=== PATIENT | male | born 1940 | race Caucasian/White ===

== ENCOUNTER 2020-06-04 17:04 | Inpatient (IN) | payer MEDICARE, SELFPAY ==
--- NOTE | 2020-06-04 | XR_ITS ---
EXAMINATION: XR CHEST CLINICAL INFORMATION: Cough COMPARISON: Report only from 08/18/2008 study TECHNIQUE: 2 views of the chest were obtained. FINDINGS: The heart size is normal. There is no evidence of CHF. No pleural effusions are seen. Some minimal atelectasis is present in the right costophrenic angle as well as in the right midlung. No convincing areas of infiltrate or lung masses are seen. IMPRESSION: No acute intrathoracic disease.
--- NOTE | 2020-06-04 | CT_ITS ---
EXAMINATION: CT ABDOMEN AND PELVIS WITHOUT CONTRAST CLINICAL INFORMATION: Right-sided flank pain COMPARISON: Renal ultrasound 02/15/2020, CT abdomen 02/18/2007 TECHNIQUE: Multidetector volumetric imaging was performed from the superior aspect of the liver through the pubic symphysis. Sagittal and coronal reformatted images were obtained on the technologist's workstation. This CT examination was performed using dose optimization techniques as appropriate, variously including the following: *Automated exposure control *Adjustment of mA and/or kV according to patient size (this includes techniques or standardized protocols for targeted exams where dose is matched to indication/reason for exam; i.e. extremities or head) *Use of iterative reconstruction technique DLP: 886 mGy-cm FINDINGS: LUNG BASES: The visualized lung bases are unremarkable. LIVER, GALLBLADDER, AND BILIARY TREE: The liver demonstrates slightly decreased attenuation compared to the spleen suggesting hepatic steatosis. No focal liver mass or bile duct dilatation is seen. The gallbladder contains a few calcific stones but there is no evidence of wall thickening or pericholecystic fluid collections. PANCREAS: Unremarkable. SPLEEN: Unremarkable. ADRENAL GLANDS: Unremarkable. KIDNEYS AND URETERS: Right kidney: There is an obstructing 7.6 x 7.7 x 5.3 mm calculus present at the right ureteropelvic junction this measures 1400 Hounsfield units and is 14.7 cm from the posterior axillary line. Moderate hydronephrosis is present. Multiple other intrarenal calculi are present on the right with 4 other calculi seen, the largest in the right lower pole measuring 3 mm. No renal masses are seen. Left kidney: Left kidney appears unremarkable. BLADDER: Submucosal fat is present in the bladder wall. GASTROINTESTINAL TRACT: Extensive colonic diverticulosis is noted without diverticulitis. Patient status post right hemicolectomy. The small and large bowel are otherwise unremarkable. ABDOMINAL WALL: No significant hernia is appreciated. LYMPH NODES: Normal. VASCULAR: No aneurysm is seen. Minimal atherosclerotic calcifications present in the aorta and iliac vessels. The left renal vein is retroaortic. PELVIC VISCERA: Prostate is enlarged measuring 5.0 x 4.2 x 4.5 cm. Seminal vesicles appear normal. OSSEOUS STRUCTURES: Degenerative changes are present in the spine. IMPRESSION: 1. Obstructing right ureteropelvic junction calculus 2. Other smaller nonobstructing right sided calculi 3. Hepatic steatosis 4. Cholelithiasis 5. Diverticulosis 6. BPH
[2020-06-04 17:11] VITALS: BP 148/67; PULSE 71; RESP 18; TEMP 36.4; O2SAT 98; BMI 71.6
[2020-06-04 18:00] VITALS: BP 137/67; PULSE 65; RESP 16; TEMP 36.6; O2SAT 97
--- NOTE | 2020-06-04 18:01 | ED_ITS ---
HPI - Abdominal Pain General Chief Complaint: Back Pain/Injury Stated Complaint: LOWER BACK PAIN Time Seen by Provider: 06/04/20 17:42 Source: patient Mode of arrival: ambulatory History of Present Illness HPI narrative: right flank pain radiating to abdomen. Pertinent past history: none Onset (ago): day(s) ( To) Pain Consistency: constant Severity: moderate Quality: sharp Radiation: RUQ Related Data Home Medications Medication Instructions Recorded Confirmed allopurinol 1 tab PO DAILY 06/04/20 06/04/20 amlodipine 1 tab PO DAILY 06/04/20 06/04/20 tamsulosin 0.8 mg PO DAILY 06/04/20 06/04/20 Allergies Allergy/AdvReac Type Severity Reaction Status Date / Time No Known Allergies Allergy Verified 06/04/20 17:21 Review of Systems Review of Systems Constitutional : No Weight loss, No Fever, No Chills, No Night Sweats, No Fatigue, No Malaise ENT/Mouth : No Hearing loss, No Ear Pain, No Nasal Congestion, No Sinus Pain, No Hoarseness, No sore throat, No Rhinorrhea, No Swallowing Difficulty Eyes: No Eye Pain, No Swelling, No Redness, No Foreign Body, No Discharge, No Vision Changes Cardiovascular : No Chest Pain, No SOB, No Dyspnea on Exertion, No Orthopnea, No Edema, No Palpitations Respiratory : No Cough, No Sputum, No Wheezing, No Smoke Exposure, No Dyspnea Gastrointestinal : negative Nausea, negative Vomiting, negative Diarrhea, positive abdominal Pain, No Hematochezia, No Melena, positive right flank pain Genitourinary : no irregular bleeding, No Dysuria, No Urinary Frequency, No Hematuria, No Urinary Incontinence, No Urgency, No Flank Pain, No Urinary Flow Changes, No Hesitancy Musculoskeletal : No joint pain, No Myalgias, No Joint Swelling Skin : No Skin Lesions, No rash Neuro : No Weakness, No Numbness, No Paresthesias, No Loss of Consciousness, No Dizziness, No Headache Psych : No Anxiety/Panic, No Depression, No SI/HI/AH/VH, No Social Issues, Heme/Lymph: No Bruising, No Bleeding,No Lymphadenopathy Endocrine : No Polyuria, No Polydipsia, No Temperature Intolerance Physical Exam Vital Signs and I&O and Narrative: Vital Signs and I&O: Vital Signs Temp 98.1 F 10/03/20 23:58 Pulse 58 06/04/20 23:58 Resp 16 06/04/20 23:58 BP 132/54 L 06/04/20 23:58 Pulse Ox 95 06/04/20 23:58 Intake & Output 06/04/20 06/04/20 06/05/20 06:59 18:59 06:59 Intake Total 1000 / 1059.95 Balance 1000 / 1059.95 Weight 260 kg Intake: Intake, IV Amoun t 1000 / 1059.95 0.9 % Sodium C hloride 1,000 ml 1000 / 1000 @ 999 mls/hr I VCONT .Q1H1M VY Rx#:[id number] Body Mass Index 71.6 Appearance: Alert. Oriented X3. No acute distress. Eyes: Pupils equal, round and reactive to light. ENT: Pharynx normal. Neck: Normal inspection. Neck supple. CVS: Normal heart rate and rhythm. Pulses normal. Respiratory: No respiratory distress. Breath sounds normal. Abdomen: Soft and right lower quadrant tenderness. No rebound. No rigidity. Back: right flank tenderness. No ecchymosis, no abscess. No laceration Skin: Skin warm and dry. Normal skin color. Normal skin turgor. Extremities: No lower extremity edema. No lower extremity edema. Neuro: Oriented X 3. No motor deficit. No sensory deficit. Course Reevaluation(s) Reevaluation #1: I spoke with patient in regards to laboratory work and CT scan, admission and IV antibiotics Time: 19:37 Consultations Consultation #1: I spoke with hospitalist Dr. Cali Victor for admission and I spoke with Urology Dr. Cespedes. Recommends IV antibiotics admission will see in the morning Time: 19:37 MDM - Abdominal Pain Differential Diagnosis Differential diagnosis: Likely abdominal pain and diverticulitis Medical Records Attestation: I reviewed the patient's medical records. Medical records narrative: KIDNEYS AND URETERS: Right kidney: There is an obstructing 7.6 x 7.7 x 5.3 mm calculus present at the right ureteropelvic junction this measures 1400 Hounsfield units and is 14.7 cm from the posterior axillary line. Moderate hydronephrosis is present. Multiple other intrarenal calculi are present on the right with 4 other calculi seen, the largest in the right lower pole measuring 3 mm. No renal masses are seen. Lab Data Result diagrams: 06/04/20 18:02 06/04/20 18:02 Labs: Lab Results 06/04/20 06/04/20 06/04/20 Range/Units 17:45 18:01 18:02 WBC (4.8-10.8) X10*3/uL RBC (4.60-5.80) X10*6/uL Hgb (14.0-18.0) g/dl Hct (42-52) % MCV (80-98) fL MCH (27.0-33.0) pg MCHC (31.0-36.0) g/dl RDW (11.0-16.0) % Plt Count (160-400) X10*3/uL MPV (9.4-12.4) fL Immature Gran % (Auto) Neut % (Auto) Lymph % (Auto) [place] % (Auto) Eos % (Auto) Baso % (Auto) Neut # (Auto) Lymph # (Auto) [place] # (Auto) Eos # (Auto) Baso # (Auto) Abs Immat Gran (auto) Absolute Nucleated RBC (0.0-0.012) X10*3/uL Nucleated RBC % (auto) (0.0-0.2) /100WBC Neutrophils % (Manual) (45-73) % Band Neutrophils % (3-5) % Lymphocytes % (Manual) (20-40) % Monocytes % (Manual) (2-11) % Neutrophils # (Manual) (2.2-7.9) X10*3/uL Lymphocytes # (Manual) (0.6-4.8) X10*3/uL Monocytes # (Manual) (0.0-1.2) X10*3/uL Sm[place] Cells Platelet Estimate (NORMAL) Plt Morphology Comment RBC Morphology Macrocytosis Sodium 142 (135-145) mmol/L Potassium 4.0 (3.3-5.1) mmol/l Chloride 105 (96-108) mmol/L Carbon Dioxide 27 (22-29) mmol/L Anion Gap 14 (12-20) BUN 15 (9-16) mg/dL Creatinine 0.96 (0.5-1.4) mg/dL Estim Creat Clear Calc 138.7 Estimated GFR > 60 Random Glucose 120 H (60-115) mg/dL Lactic Acid (0.5-2.0) mmol/L Calcium 9.1 (8.4-10.2) mg/dL Total Bilirubin 0.5 (0.0-1.0) mg/dL Direct Bilirubin 0.3 (0.0-0.5) mg/dL AST 26 (5-37) U/L ALT 35 (0-40) U/L Alkaline Phosphatase 64 (39-117) U/L Total Protein 6.9 (6.5-8.0) g/dL Albumin 4.3 (3.5-5.0) g/dL Lipase 25 (8-78) U/L Urine Color YELLOW Urine Appearance CLEAR Urine pH 5.5 (5.0-8.0) Ur Specific [place] >= 1.030 H (1.005-1.025) Urine Protein NEG (NEG-TRACE) MG/DL Urine Glucose (UA) NEG (NEG) MG/DL Urine Ketones 5 (NEG) MG/DL Urine Blood 3+ H (NEG) Urine Nitrite NEG (NEG) Ur Leukocyte Esterase NEG (NEG) Urine RBC 10-14 H (0) /HPF Urine WBC 0-2 (0-4) /HPF Ur Squamous Epith Cells NONE /LPF Urine Bacteria NONE /LPF 06/04/20 06/04/20 Range/Units 18:02 19:33 WBC 18.2 H (4.8-10.8) X10*3/uL RBC 3.85 L (4.60-5.80) X10*6/uL Hgb 13.1 L (14.0-18.0) g/dl Hct 39.8 L (42-52) % MCV 103.4 H (80-98) fL MCH 34.0 H (27.0-33.0) pg MCHC 32.9 (31.0-36.0) g/dl RDW 12.7 (11.0-16.0) % Plt Count 170 (160-400) X10*3/uL MPV 9.2 L (9.4-12.4) fL Immature Gran % (Auto) Cancelled Neut % (Auto) Cancelled Lymph % (Auto) Cancelled [place] % (Auto) Cancelled Eos % (Auto) Cancelled Baso % (Auto) Cancelled Neut # (Auto) Cancelled Lymph # (Auto) Cancelled [place] # (Auto) Cancelled Eos # (Auto) Cancelled Baso # (Auto) Cancelled Abs Immat Gran (auto) Cancelled Absolute Nucleated RBC 0.000 (0.0-0.012) X10*3/uL Nucleated RBC % (auto) 0.0 (0.0-0.2) /100WBC Neutrophils % (Manual) 35 L (45-73) % Band Neutrophils % 0 L (3-5) % Lymphocytes % (Manual) 61 H (20-40) % Monocytes % (Manual) 4 (2-11) % Neutrophils # (Manual) 6.4 (2.2-7.9) X10*3/uL Lymphocytes # (Manual) 11.1 H (0.6-4.8) X10*3/uL Monocytes # (Manual) 0.7 (0.0-1.2) X10*3/uL Smudge Cells PRESENT Platelet Estimate NORMAL (NORMAL) Plt Morphology Comment NORMAL RBC Morphology NOTED Macrocytosis 1+ Sodium (135-145) mmol/L Potassium (3.3-5.1) mmol/l Chloride (96-108) mmol/L Carbon Dioxide (22-29) mmol/L Anion Gap (12-20) BUN (9-16) mg/dL Creatinine (0.5-1.4) mg/dL Estim Creat Clear Calc Estimated GFR Random Glucose (60-115) mg/dL Lactic Acid 1.4 (0.5-2.0) mmol/L Calcium (8.4-10.2) mg/dL Total Bilirubin (0.0-1.0) mg/dL Direct Bilirubin (0.0-0.5) mg/dL AST (5-37) U/L ALT (0-40) U/L Alkaline Phosphatase (39-117) U/L Total Protein (6.5-8.0) g/dL Albumin (3.5-5.0) g/dL Lipase (8-78) U/L Urine Color Urine Appearance Urine pH (5.0-8.0) Ur Specific [place] (1.005-1.025) Urine Protein (NEG-TRACE) MG/DL Urine Glucose (UA) (NEG) MG/DL Urine Ketones (NEG) MG/DL Urine Blood (NEG) Urine Nitrite (NEG) Ur Leukocyte Esterase (NEG) Urine RBC (0) /HPF Urine WBC (0-4) /HPF Ur Squamous Epith Cells /LPF Urine Bacteria /LPF Discharge Plan Discharge Clinical Impression: Renal colic, Obstructive uropathy Patient Disposition: Admitted As Inpatient [facility] Past Medical History Attestation statement: The following information was validated with the patient. Medical History (Updated 06/05/20 @ 00:33 by Emre Kumar DO) BPH (benign prostatic hyperplasia) Colon cancer Gout HTN (hypertension) Social History Social History Household Members: Family Alcohol intake: unknown Smoking Status: Never smoker Use of substances other than those prescribed or required for medical reasons: No Advance Directives: No Advance Directives Information Provided: Yes
[2020-06-04] MEDS: 0.9 % Sodium Chloride 1,000 ML 999 ML IVCONT ×2 (18:04→23:53)
[2020-06-04 18:06] LABS: Glucose Urine UA NEG (NEG); Leukocyte Esterase Urine NEG (NEG); Nitrite Urine NEG (NEG); PH 5.5 (5.0-8.0); Specific Gravity - Urine >= 1.030 (1.005-1.025); Urine Blood 3+ (NEG); Urine Ketones 5 MG/DL (NEG); Urine Protein NEG (NEG-TRACE)
[2020-06-04] MEDS: Ketorolac Tromethamine 30 MG/ML VIAL IVPUSH (18:06)
[2020-06-04] MEDS: ondansetron HCL 4 MG/2 ML VIAL IVPUSH (18:07)
[2020-06-04 18:08] LABS: Appearance Urine CLEAR; Color Urine YELLOW
[2020-06-04 18:16] LABS: WBC Urine 0-2 /HPF (0-4)
[2020-06-04 18:33] LABS: Hematocrit 39.8 % (42-52); Hemoglobin 13.1 g/dl (14.0-18.0); Mean Corpuscular HGB Conc 32.9 g/dl (31.0-36.0); Mean Corpuscular Volume 103.4 fL (80-98); Mean Platelet Volume 9.2 fL (9.4-12.4); Platelet Count 170 X10*3/uL (160-400); Red Blood Count 3.85 X10*6/uL (4.60-5.80); Red Cell Distribution Width 12.7 % (11.0-16.0); White Blood Count 18.2 X10*3/uL (4.8-10.8)
[2020-06-04 18:55] LABS: Anion Gap 14 (12-20); Blood Urea Nitrogen 15 mg/dL (9-16); Calcium 9.1 mg/dL (8.4-10.2); Carbon Dioxide 27 mmol/L (22-29); Chloride 105 mmol/L (96-108); Creatinine Clr Calc Pharmacy 138.7; Estimated Glomerular Filt Rate > 60; Glucose Random 120 mg/dL (60-115); Sodium 142 mmol/L (135-145)
[2020-06-04 19:20] LABS: Lymphocytes Absolute Manual 11.1 X10*3/uL (0.6-4.8); Lymphocytes Percent Manual 61 % (20-40); Monocytes Absolute Manual 0.7 X10*3/uL (0.0-1.2); Monocytes Percent Manual 4 % (2-11); Neutrophils Percent Manual 35 % (45-73)
[2020-06-04 19:21] LABS: Band Neutrophils Percent 0 % (3-5); Macrocytosis 1+; Neutrophils Absolute Manual 6.4 X10*3/uL (2.2-7.9); Platelet Estimate NORMAL (NORMAL); Platelet Morphology Comment NORMAL; RBC Morphology NOTED; Smudge Cells PRESENT
[2020-06-04 20:06] VITALS: BP 151/66; PULSE 84; RESP 18; TEMP 36.7; O2SAT 96
[2020-06-04 20:11] LABS: Lactic Acid 1.4 mmol/L (0.5-2.0)
[2020-06-04 22:37] LABS: Alanine Aminotransferase 35 U/L (0-40); Albumin Level 4.3 g/dL (3.5-5.0); Alkaline Phosphatase 64 U/L (39-117); Aspartate Amino Transferase 26 U/L (5-37); Bilirubin Direct 0.3 mg/dL (0.0-0.5); Bilirubin Total 0.5 mg/dL (0.0-1.0); Lipase 25 U/L (8-78); Total Protein 6.9 g/dL (6.5-8.0)
[2020-06-04 22:38] VITALS: BP 142/63; PULSE 70; RESP 18; TEMP 36.7; O2SAT 96
--- NOTE | 2020-06-04 23:13 | PC.NURSE ---
Report received. Reports pain 2/10 at this time. Breathing even, non-labored. No apparent distress.
--- NOTE | 2020-06-04 23:14 | P.HPIM_ITS ---
History of Present Illness Date of Service: 06/04/20 Chief Complaint: right sided back pain 79 y/o male who presented from home c/o right sided back pain. Per history provided by the patient, for the past 1 week has been having on and off right sided back pain, sharp like, 10/10 in intensity which worsened and now has been constant for the past day. Patient denies any chest pain, SOB, nausea, vomiting, diarrhea, fever or difficulty urinating. Patient does reports a significant hx of kidney stones in the past but denies requiring any urologic procedure. On presentation to the ED BP noted to be 142/63, HR of 70, no evidence of fever. WBC of ~18 noted. Patient has hx of CLL not on treatment at present. CT abdomen showed right sided obstructing ureteropelvic junction stone. Urology contacted per ED who recommended patient to be admitted under medicine and urology to evaluate in the am (Dr Cespedes). Patient seen and evaluated at the bedside, laying down in bed in no acute distress. ROS as above otherwise negative. Physical exam unremarkable on exam. PMHX: BPH, Colon cancer, Gout, HTN, kidney stones PSx: unknown Toxic habits: No documented hx of alcohol abuse, smoking or IVDA Review of Systems Review of Systems: Yes all other systems are reviewed and are negative Musculoskeletal: Musculoskeletal: Reports back pain PMFSH Medical History BPH (benign prostatic hyperplasia) Colon cancer Gout HTN (hypertension) Functional capacity: independent ambulation Social History Household Members: Family Alcohol intake: unknown Smoking Status: Never smoker Use of substances other than those prescribed or required for medical reasons: No Advance Directives: No Advance Directives Information Provided: Yes Meds Allergies Allergy/AdvReac Type Severity Reaction Status Date / Time No Known Allergies Allergy Verified 06/04/20 17:21 Home Medications Medication Instructions Recorded Confirmed Type allopurinol 1 tab PO DAILY 06/04/20 06/04/20 History amlodipine 1 tab PO DAILY 06/04/20 06/04/20 History tamsulosin 0.8 mg PO DAILY 06/04/20 06/04/20 History Physical Exam Vital Signs and Narrative: Vital Signs: Last Vital Signs Temp 98.0 F 06/04/20 22:38 Pulse 70 06/04/20 22:38 Resp 18 06/04/20 22:38 BP 142/63 H 06/04/20 22:38 Pulse Ox 96 06/04/20 22:38 Body Mass Index 71.6 Const: General: cooperative, comfortable, no acute distress and well developed Orientation/consciousness: oriented to person, oriented to place and oriented to time HENMT: Head: Yes normal to inspection and Yes atraumatic Ears: external ears normal Eyes: General: appearance normal, both eyes and all related structures Neck: Yes normal visual inspection Chest: Chest palpation & inspection: normal inspection of the chest and normal palpation of entire chest wall Resp: Effort & Inspection: normal respiratory effort Cardio: Jugular venous distension: no JVD Rate: regular rate Rhythm: regular rhythm GI: Inspection: Yes normal to inspection Skin: General skin exam: no rashes or lesions noted Neuro: General: oriented to person, oriented to place and oriented to time Cognition (Neuro): normal cognition Extrem: General: Yes normal to inspection Results Labs Labs: Laboratory Tests 06/04/20 06/04/20 06/04/20 17:45 18:01 18:02 WBC RBC Hgb Hct MCV MCH MCHC RDW Plt Count MPV Immature Gran % (Auto) Neut % (Auto) Lymph % (Auto) [place] % (Auto) Eos % (Auto) Baso % (Auto) Neut # (Auto) Lymph # (Auto) [place] # (Auto) Eos # (Auto) Baso # (Auto) Abs Immat Gran (auto) Absolute Nucleated RBC Nucleated RBC % (auto) Neutrophils % (Manual) Band Neutrophils % Lymphocytes % (Manual) Monocytes % (Manual) Neutrophils # (Manual) Lymphocytes # (Manual) Monocytes # (Manual) Smudge Cells Platelet Estimate Plt Morphology Comment RBC Morphology Macrocytosis Sodium 142 Potassium 4.0 Chloride 105 Carbon Dioxide 27 Anion Gap 14 BUN 15 Creatinine 0.96 Estim Creat Clear Calc 138.7 Estimated GFR > 60 Random Glucose 120 H Lactic Acid Calcium 9.1 Total Bilirubin 0.5 Direct Bilirubin 0.3 AST 26 ALT 35 Alkaline Phosphatase 64 Total Protein 6.9 Albumin 4.3 Lipase 25 Urine Color YELLOW Urine Appearance CLEAR Urine pH 5.5 Ur Specific [place] >= 1.030 H Urine Protein NEG Urine Glucose (UA) NEG Urine Ketones 5 Urine Blood 3+ H Urine Nitrite NEG Ur Leukocyte Esterase NEG Urine RBC 10-14 H Urine WBC 0-2 Ur Squamous Epith Cells NONE Urine Bacteria NONE 06/04/20 06/04/20 18:02 19:33 WBC 18.2 H RBC 3.85 L Hgb 13.1 L Hct 39.8 L MCV 103.4 H MCH 34.0 H MCHC 32.9 RDW 12.7 Plt Count 170 MPV 9.2 L Immature Gran % (Auto) Cancelled Neut % (Auto) Cancelled Lymph % (Auto) Cancelled [place] % (Auto) Cancelled Eos % (Auto) Cancelled Baso % (Auto) Cancelled Neut # (Auto) Cancelled Lymph # (Auto) Cancelled [place] # (Auto) Cancelled Eos # (Auto) Cancelled Baso # (Auto) Cancelled Abs Immat Gran (auto) Cancelled Absolute Nucleated RBC 0.000 Nucleated RBC % (auto) 0.0 Neutrophils % (Manual) 35 L Band Neutrophils % 0 L Lymphocytes % (Manual) 61 H Monocytes % (Manual) 4 Neutrophils # (Manual) 6.4 Lymphocytes # (Manual) 11.1 H Monocytes # (Manual) 0.7 Smudge Cells PRESENT Platelet Estimate NORMAL Plt Morphology Comment NORMAL RBC Morphology NOTED Macrocytosis 1+ Sodium Potassium Chloride Carbon Dioxide Anion Gap BUN Creatinine Estim Creat Clear Calc Estimated GFR Random Glucose Lactic Acid 1.4 Calcium Total Bilirubin Direct Bilirubin AST ALT Alkaline Phosphatase Total Protein Albumin Lipase Urine Color Urine Appearance Urine pH Ur Specific [place] Urine Protein Urine Glucose (UA) Urine Ketones Urine Blood Urine Nitrite Ur Leukocyte Esterase Urine RBC Urine WBC Ur Squamous Epith Cells Urine Bacteria Assessment and Plan (1) Obstructive uropathy: Status: Acute Hemodynamically stable at present NPO as of now IV lfuids Pain management Urology to follow up in the am. Dr Cespedes (2) Hypertension: Status: Acute continue with amlodipine home dose (3) Gout: Status: Acute continue with allopurinol home dose (4) BPH (benign prostatic hyperplasia): Status: Acute continue with tamsulosin home dose
[2020-06-04] MEDS: cefTRIAXone sodium 1 GM in 0.9 % Sodium Chloride 50 ML IV (23:51)
[2020-06-04 23:58] VITALS: BP 132/54; PULSE 58; RESP 16; TEMP 36.7; O2SAT 95
[2020-06-05] VITALS (8 sets, daily range): BP systolic 135–165; BP diastolic 67–80; PULSE 55–81; RESP 18–20; TEMP 36.1–37.1; O2SAT 96–99
[2020-06-05] MEDS: 0.9 % Sodium Chloride 1,000 ML 75 ML IVCONT ×3 (01:25→23:42)
[2020-06-05] MEDS: Morphine Sulfate 2 MG/ML CARTRIDGE 1 MG IVPUSH (01:41)
[2020-06-05] MEDS: Enoxaparin Sodium 40 MG/0.4 ML SYRINGE SUBCUT ×2 (01:43→23:39)
[2020-06-05 07:43] LABS: Hematocrit 36.6 % (42-52); Hemoglobin 11.8 g/dl (14.0-18.0); Mean Corpuscular HGB Conc 32.2 g/dl (31.0-36.0); Mean Corpuscular Hemoglobin 33.8 pg (27.0-33.0); Mean Corpuscular Volume 104.9 fL (80-98); Mean Platelet Volume 9.1 fL (9.4-12.4); Platelet Count 127 X10*3/uL (160-400); Red Blood Count 3.49 X10*6/uL (4.60-5.80); Red Cell Distribution Width 12.7 % (11.0-16.0); White Blood Count 12.1 X10*3/uL (4.8-10.8)
[2020-06-05 08:12] LABS: Blood Urea Nitrogen 15 mg/dL (9-16); Creatinine Clr Calc Pharmacy 166.5; Estimated Glomerular Filt Rate > 60; Glucose Random 112 mg/dL (60-115)
[2020-06-05] MEDS: Tamsulosin HCL 0.4 MG CAPSULE 0.8 MG PO (08:22)
[2020-06-05] MEDS: amLODIPine Besylate 5 MG TABLET PO (08:22)
[2020-06-05] MEDS: allopurinoL 100 MG TABLET PO (08:23)
[2020-06-05 08:25] LABS: Anion Gap 9 (12-20); Calcium 8.2 mg/dL (8.4-10.2); Carbon Dioxide 26 mmol/L (22-29); Chloride 110 mmol/L (96-108); Potassium 4.3 mmol/l (3.3-5.1); Sodium 141 mmol/L (135-145)
[2020-06-05 09:15] LABS: Band Neutrophils Percent 0 % (3-5); Lymphocytes Percent Manual 66 % (20-40); Monocytes Absolute Manual 0.4 X10*3/uL (0.0-1.2); Monocytes Percent Manual 3 % (2-11); Neutrophils Absolute Manual 3.8 X10*3/uL (2.2-7.9); Neutrophils Percent Manual 31 % (45-73)
[2020-06-05 09:17] LABS: Macrocytosis 1+; Platelet Estimate NORMAL (NORMAL); Platelet Morphology Comment NORMAL; RBC Morphology NOTED
--- NOTE | 2020-06-05 09:17 | MHC.CM.PN ---
Pt reports he lives at home with his and step-son, is independent with both care and mobility, and has no in home services. Pt reports he does have a CPAP at home that he uses every night. Pt reports he will have his bring it in if he is going to be here more that a couple nights. Pt reports his PCP is Cj Norwood. Pt has a HCP completed which may be on file at Dr Norwood's office. IMM delivered and current DC plan is home with no services pt will self arrange transport
[2020-06-05 09:18] LABS: Ovalocytes 1+; Smudge Cells PRESENT; Stomatocytes 1+
--- NOTE | 2020-06-05 14:06 | HO.PM.IMPN ---
Subjective Subjective Date of Service: 06/05/20 Interval History: patient seen and examined at bedside patient reported back pain Physical Exam Vital Signs and I&O and Narrative: Vital Signs and I&O: Vital Signs Temp 96.9 F 06/05/20 12:00 Pulse 55 06/05/20 12:00 Resp 18 06/05/20 12:00 BP 151/75 H 06/05/20 12:00 Pulse Ox 98 06/05/20 12:00 Intake & Output 06/04/20 06/05/20 06/05/20 18:59 06:59 18:59 Intake Total Output Total 300 / 300 Balance -300 / -300 Urine Output (Aver age ml/kg/hr) 0.10 Weight 260 kg Intake: Intake, IV Amoun t / cefTRIAXone so dium 1 gm In 0.9 50 / 50 % Sodium Chlor alondra 50 ml @ 100 mls/hr IV ONCE ONE Rx#: [id number] 0.9 % Sodium C hloride 1,000 ml / @ 999 mls/hr I VCONT .Q1H1M VY Rx#:[id number] Output: Output, Urine Am ount 300 / 300 Other: NPO Yes Number of Incont inent Voids 1 Body Mass Index 71.6 Const: General: cooperative, comfortable, no acute distress and well developed Orientation/consciousness: oriented to person, oriented to place and oriented to time HENMT: Head: Yes normal to inspection and Yes atraumatic Ears: external ears normal Eyes: General: appearance normal, both eyes and all related structures Neck: Neck: Yes normal visual inspection Chest: Chest palpation & inspection: normal inspection of the chest and normal palpation of entire chest wall Resp: Effort & Inspection: normal respiratory effort Cardio: Jugular venous distension: no JVD Rate: regular rate Rhythm: regular rhythm GI: Inspection: Yes normal to inspection Skin: General skin exam: no rashes or lesions noted Neuro: General: oriented to person, oriented to place and oriented to time Cognition (Neuro): normal cognition Extrem: General: Yes normal to inspection Objective Data Current Medications Generic Name Dose Route Start Last Admin Trade Name Freq PRN Reason Stop Dose Admin Allopurinol 100 mg 06/05/20 09:00 06/05/20 08:23 Allopurinol 100 Mg Tablet PO 100 mg DAILY VY Administration Amlodipine Besylate 5 mg 06/05/20 09:00 06/05/20 08:22 Amlodipine Besylate 5 Mg Tablet PO 5 mg DAILY VY Administration Protocol Enoxaparin Sodium 40 mg 06/05/20 01:00 06/05/20 01:43 Enoxaparin Sodium 40 Mg/0.4 Ml Syringe SUBCUT 40 mg Q24H VY Administration Sodium Chloride 1,000 mls @ 75 mls/hr 06/05/20 00:29 06/05/20 01:25 Ns IVCONT 75 mls/hr .[id number] VY Administration Morphine Sulfate 2 mg 06/05/20 11:47 Morphine Sulfate 2 Mg/Ml Cartridge IVPUSH Q4H PRN Pain, Severe (Pain Scale 7-10) Sodium Chloride 2 ml 06/05/20 00:29 06/05/20 08:23 0.9 % Sodium Chloride Flush 3 Ml Syringe IVFLUSH Not Given QSHIFT [facility] Tamsulosin HCl 0.8 mg 06/05/20 09:00 06/05/20 08:22 Tamsulosin Hcl 0.4 Mg Capsule PO 0.8 mg DAILY VY Administration Labs CBC & Chem 7: 06/05/20 07:12 06/05/20 07:12 Labs: Laboratory Results - last 24 hr 06/04/20 06/04/20 06/04/20 17:45 18:01 18:02 MCV MCH MCHC RDW Plt Count MPV Immature Gran % (Auto) Neut % (Auto) Lymph % (Auto) [place] % (Auto) Eos % (Auto) Baso % (Auto) Neut # (Auto) Lymph # (Auto) [place] # (Auto) Eos # (Auto) Baso # (Auto) Abs Immat Gran (auto) Absolute Nucleated RBC Nucleated RBC % (auto) Neutrophils % (Manual) Band Neutrophils % Lymphocytes % (Manual) Monocytes % (Manual) Neutrophils # (Manual) Lymphocytes # (Manual) Monocytes # (Manual) Smudge Cells Platelet Estimate Plt Morphology Comment RBC Morphology Macrocytosis Ovalocytes Stomatocytes Anion Gap 14 Estim Creat Clear Calc 138.7 Estimated GFR > 60 Random Glucose 120 H Lactic Acid Calcium 9.1 Total Bilirubin 0.5 Direct Bilirubin 0.3 AST 26 ALT 35 Alkaline Phosphatase 64 Total Protein 6.9 Albumin 4.3 Lipase 25 Urine Color YELLOW Urine Appearance CLEAR Urine pH 5.5 Ur Specific [place] >= 1.030 H Urine Protein NEG Urine Glucose (UA) NEG Urine Ketones 5 Urine Blood 3+ H Urine Nitrite NEG Ur Leukocyte Esterase NEG Urine RBC 10-14 H Urine WBC 0-2 Ur Squamous Epith Cells NONE Urine Bacteria NONE 06/04/20 06/04/20 06/05/20 18:02 19:33 07:12 MCV 103.4 H 104.9 H MCH 34.0 H 33.8 H MCHC 32.9 32.2 RDW 12.7 12.7 Plt Count 170 127 L D MPV 9.2 L 9.1 L Immature Gran % (Auto) Cancelled Neut % (Auto) Cancelled Lymph % (Auto) Cancelled [place] % (Auto) Cancelled Eos % (Auto) Cancelled Baso % (Auto) Cancelled Neut # (Auto) Cancelled Lymph # (Auto) Cancelled [place] # (Auto) Cancelled Eos # (Auto) Cancelled Baso # (Auto) Cancelled Abs Immat Gran (auto) Cancelled Absolute Nucleated RBC 0.000 0.000 Nucleated RBC % (auto) 0.0 0.0 Neutrophils % (Manual) 35 L 31 L Band Neutrophils % 0 L 0 L Lymphocytes % (Manual) 61 H 66 H Monocytes % (Manual) 4 3 Neutrophils # (Manual) 6.4 3.8 Lymphocytes # (Manual) 11.1 H 8.0 H Monocytes # (Manual) 0.7 0.4 Smudge Cells PRESENT PRESENT Platelet Estimate NORMAL NORMAL Plt Morphology Comment NORMAL NORMAL RBC Morphology NOTED NOTED Macrocytosis 1+ 1+ Ovalocytes 1+ Stomatocytes 1+ Anion Gap Estim Creat Clear Calc Estimated GFR Random Glucose Lactic Acid 1.4 Calcium Total Bilirubin Direct Bilirubin AST ALT Alkaline Phosphatase Total Protein Albumin Lipase Urine Color Urine Appearance Urine pH Ur Specific [place] Urine Protein Urine Glucose (UA) Urine Ketones Urine Blood Urine Nitrite Ur Leukocyte Esterase Urine RBC Urine WBC Ur Squamous Epith Cells Urine Bacteria 06/05/20 07:12 MCV MCH MCHC RDW Plt Count MPV Immature Gran % (Auto) Neut % (Auto) Lymph % (Auto) [place] % (Auto) Eos % (Auto) Baso % (Auto) Neut # (Auto) Lymph # (Auto) [place] # (Auto) Eos # (Auto) Baso # (Auto) Abs Immat Gran (auto) Absolute Nucleated RBC Nucleated RBC % (auto) Neutrophils % (Manual) Band Neutrophils % Lymphocytes % (Manual) Monocytes % (Manual) Neutrophils # (Manual) Lymphocytes # (Manual) Monocytes # (Manual) Smudge Cells Platelet Estimate Plt Morphology Comment RBC Morphology Macrocytosis Ovalocytes Stomatocytes Anion Gap 9 L Estim Creat Clear Calc 166.5 Estimated GFR > 60 Random Glucose 112 Lactic Acid Calcium 8.2 L Total Bilirubin Direct Bilirubin AST ALT Alkaline Phosphatase Total Protein Albumin Lipase Urine Color Urine Appearance Urine pH Ur Specific [place] Urine Protein Urine Glucose (UA) Urine Ketones Urine Blood Urine Nitrite Ur Leukocyte Esterase Urine RBC Urine WBC Ur Squamous Epith Cells Urine Bacteria Microbiology Microbiology Results: Microbiology 06/04/20 19:28 Blood - Venous Blood Culture - Final Assessment and Plan (1) Obstructive uropathy: Status: Acute Assessment and Plan: continue IV fluid continue supportive management urology consult with Dr. Cespedes plan for cystoscopy tomorrow per urology NPO from midnight continue IV morphine for pain (2) Hypertension: Status: Acute Assessment and Plan: continue with amlodipine (3) Gout: Status: Acute Assessment and Plan: continue with allopurinol (4) BPH (benign prostatic hyperplasia): Status: Acute Assessment and Plan: continue with tamsulosin DVT prophylaxis Lovenox
--- NOTE | 2020-06-05 14:19 | P.PNUR_ITS ---
Subjective Subjective Patient reports: no new complaints and pain is less Interval history: STone 9mm right proximal ureter US from March no stone US from August 5mm stone Had symptoms CUrrently stable Would like intervention right USR for saturday Physical Exam Vital Signs and I&O and Narrative: Vital Signs and I&O: Vital Signs Temp 96.9 F 06/05/20 12:00 Pulse 55 06/05/20 12:00 Resp 18 06/05/20 12:00 BP 151/75 H 06/05/20 12:00 Pulse Ox 98 06/05/20 12:00 Intake & Output 06/04/20 06/05/20 06/05/20 18:59 06:59 18:59 Intake Total Output Total 300 / 300 Balance / -300 / -300 Urine Output (Aver age ml/kg/hr) 0.10 Weight 573 lb 3.23 oz Intake: Intake, IV Amoun t / cefTRIAXone so dium 1 gm In 0.9 50 / 50 % Sodium Chlor alondra 50 ml @ 100 mls/hr IV ONCE ONE Rx#: [id number] 0.9 % Sodium C hloride 1,000 ml / @ 999 mls/hr I VCONT .Q1H1M VY Rx#:[id number] Output: Output, Urine Am ount 300 / 300 Other: NPO Yes Number of Incont inent Voids 1 Body Mass Index 71.6 Const: General: cooperative, healthy appearing, comfortable and no acute distress Nutritional Appearance: average body habitus Orientation/consciou sness: oriented to person, oriented to place and oriented to time Eyes: General: appearance normal, both eyes and all related structures Chest: Chest palpation & inspection: normal inspection of the chest Resp: Effort & Inspection: normal respiratory effort Cardio: Rate: regular rate GI: Inspection: Yes normal to inspection Skin: Hair: normal Neuro: General: oriented to person, oriented to place and oriented to time Extrem: General: Yes normal to inspection Progress Note: A&P Assessment and plan (1) Hydronephrosis concurrent with and due to calculi of kidney and ureter: Problem details: see above Status: Acute Fall Risk Details Current Medications: Current Medications Generic Name Dose Route Start Last Admin Trade Name Freq PRN Reason Stop Dose Admin Allopurinol 100 mg 06/05/20 09:00 06/05/20 08:23 Allopurinol 100 Mg Tablet PO 100 mg DAILY VY Administration Amlodipine Besylate 5 mg 06/05/20 09:00 06/05/20 08:22 Amlodipine Besylate 5 Mg Tablet PO 5 mg DAILY VY Administration Protocol Enoxaparin Sodium 40 mg 06/05/20 01:00 06/05/20 01:43 Enoxaparin Sodium 40 Mg/0.4 Ml Syringe SUBCUT 40 mg Q24H VY Administration Sodium Chloride 1,000 mls @ 75 mls/hr 06/05/20 00:29 06/05/20 01:25 Ns IVCONT 75 mls/hr .[id number] VY Administration Morphine Sulfate 2 mg 06/05/20 11:47 Morphine Sulfate 2 Mg/Ml Cartridge IVPUSH Q4H PRN Pain, Severe (Pain Scale 7-10) Sodium Chloride 2 ml 06/05/20 00:29 06/05/20 08:23 0.9 % Sodium Chloride Flush 3 Ml Syringe IVFLUSH Not Given QSHIFT [facility] Tamsulosin HCl 0.8 mg 06/05/20 09:00 06/05/20 08:22 Tamsulosin Hcl 0.4 Mg Capsule PO 0.8 mg DAILY VY Administration Time Spent With Patient Time: Total time spent is greater than 50% in coordination of care (as documented) at patient's floor/unit and/or counseling patient: Time with patient: 15 - 24 minutes
[2020-06-06] VITALS (20 sets, daily range): BP systolic 132–177; BP diastolic 72–95; PULSE 61–97; RESP 18–20; TEMP 36.6–36.9; O2SAT 92–97; BMI 32.5
[2020-06-06] MEDS: Morphine Sulfate 2 MG/ML CARTRIDGE IVPUSH ×2 (01:26→05:35)
[2020-06-06 06:40] LABS: Basophils Percent Auto 0.2 % (0-2); Eosinophils Absolute Auto 0.2 X10*3/uL (0.0-0.4); Eosinophils Percent Auto 1.2 % (0-4); Hematocrit 36.7 % (42-52); Hemoglobin 12.2 g/dl (14.0-18.0); Imm Gran Abs Auto 0.03 X10*3/uL (0.00-0.03); Imm Gran Pct Auto 0.2 % (0.0-0.4); Lymphocytes Percent Auto 60.9 % (20-40); MANUAL DIFF FLAG SCAN; Mean Corpuscular HGB Conc 33.2 g/dl (31.0-36.0); Mean Corpuscular Hemoglobin 34.7 pg (27.0-33.0); Mean Corpuscular Volume 104.3 fL (80-98); Mean Platelet Volume 9.3 fL (9.4-12.4); Monocytes Absolute Auto 0.5 X10*3/uL (0.1-1.2); Monocytes Percent Auto 3.7 % (2-11); Neutrophils Absolute Auto 4.5 X10*3/uL (2.0-8.3); Neutrophils Percent Auto 33.8 % (45-73); Platelet Count 128 X10*3/uL (160-400); Red Blood Count 3.52 X10*6/uL (4.60-5.80); Red Cell Distribution Width 12.7 % (11.0-16.0); SCAN SMEAR FLAG 1; White Blood Count 13.2 X10*3/uL (4.8-10.8)
[2020-06-06 06:43] LABS: Lymphocytes Absolute Auto 8.1 X10*3/uL (1.2-4.9)
[2020-06-06 07:49] LABS: Anion Gap 9 (12-20); Blood Urea Nitrogen 15 mg/dL (9-16); Calcium 8.4 mg/dL (8.4-10.2); Carbon Dioxide 27 mmol/L (22-29); Chloride 109 mmol/L (96-108); Creatinine Clr Calc Pharmacy 156.7; Estimated Glomerular Filt Rate > 60; Glucose Random 107 mg/dL (60-115); Potassium 4.1 mmol/l (3.3-5.1); Sodium 141 mmol/L (135-145)
[2020-06-06] MEDS: amLODIPine Besylate 5 MG TABLET PO (08:04)
--- NOTE | 2020-06-06 08:06 | P.CDIC_ITS ---
CDI Concurrent Query Service Date: 06/06/20 Documentation Clarification: Please clarify if you are treating a proba ble/suspected/likely or confirmed: BODY MASS INDEX: Morbid obesity Please specify if known Inaccurate weight listed, unable to determine BMI Provider Response: Other Other Diagnosis: inaccurate weight listed PLEASE DO NOT DELETE/MODIFY EXISTING CONTENT Additional information is needed in order to code to the highest accuracy and appropriate Severity of Illness (SOI). Please clarify the information noted below in your progress notes and discharge summary. Risk Factors/Clinical Indicators/Treatments BODY MASS INDEX: 71.6 CDS: Sabrina Fuentes CCS,CDIS Contact Number: [phone] Please Review the information above and exercise your independent professional judgment in responding to the query. If you concur, pleas document in the PROGRESS NOTES and DISCHARGE SUMMARY. If you do not agree with the query, please document in the query above. THIS QUERY IS PART OF THE PERMANENT MEDICAL RECORD
[2020-06-06 08:30] LABS: SLIDE REVIEW VERIFIED
--- NOTE | 2020-06-06 10:01 | P.PNIM_ITS ---
Subjective Subjective Interval History: Pt seen and examined this AM reports pain at 2/10 this AM but was severe over night and current dose of morphine didnt help much also reports constipation Physical Exam Vital Signs and I&O and Narrative: Vital Signs and I&O: Vital Signs Temp 98.3 F 06/06/20 08:00 Pulse 68 06/06/20 08:04 Resp 19 06/06/20 08:00 BP 132/72 06/06/20 08:04 Pulse Ox 97 06/06/20 08:00 Intake & Output 06/05/20 06/06/20 06/06/20 18:59 06:59 18:59 Intake Total 1211.25 / 2271.25 1060 / 2271.25 Output Total 300 / 550 250 / 550 Balance 911.25 / 1721.25 810 / 1721.25 Urine Output (Aver age ml/kg/hr) 0.10 0.08 Intake: Intake, Oral [place] unt 240 / 600 360 / 600 Intake, IV Amoun t 971.25 / 1671.25 700 / 1671.25 0.9 % Sodium C hloride 1,000 ml 971.25 / 1671.25 700 / 1671.25 @ 75 mls/hr IV CONT .[id number] [facility] Rx#:[id number] Output: Output, Urine Am ount 300 / 550 250 / 550 Other: Dinner % Eaten 100% Number of Incont inent Voids 1 Number of Unmeas ured Voids 2 Urine Urinal Urine Color Yellow Body Mass Index 71.6 Const: General: cooperative, comfortable, no acute distress and well developed Orientation/consciousness: oriented to person, oriented to place and oriented to time HENMT: Head: Yes normal to inspection and Yes atraumatic Ears: external ear s normal Eyes: General: appearance normal, both eyes and all related structures Neck: Neck: Yes normal visual inspection Chest: Chest palpation & inspection: normal inspection of the chest and normal palpation of entire chest wall Resp: Effort & Inspection: normal respiratory effort Cardio: Jugular venous distension: no JVD Rate: regular rate Rhythm: regular rhythm GI: Inspection: Yes normal to inspection Skin: General skin exam: no rashes or lesions noted Neuro: General: oriented to person, oriented to place and oriented to time Cognition (Neuro): normal cognition Extrem: General: Yes normal to inspection Objective Data Current Medications Generic Name Dose Route Start Last Admin Trade Name Freq PRN Reason Stop Dose Admin Allopurinol 100 mg 06/05/20 09:00 06/06/20 08:05 Allopurinol 100 Mg Tablet PO Not Given DAILY [facility] Amlodipine Besylate 5 mg 06/05/20 09:00 06/06/20 08:04 Amlodipine Besylate 5 Mg Tablet PO 5 mg DAILY [facility] Administration Protocol Enoxaparin Sodium 40 mg 06/05/20 01:00 06/05/20 23:39 Enoxaparin Sodium 40 Mg/0.4 Ml Syringe SUBCUT 40 mg Q24H VY Administration Sodium Chloride 1,000 mls @ 75 mls/hr 06/05/20 00:29 06/05/20 23:42 Ns IVCONT 75 mls/hr .[id number] [facility] Administration Morphine Sulfate 4 mg 06/06/20 09:57 Morphine Sulfate 2 Mg/Ml Cartridge IVPUSH Q4H PRN Pain, Severe (Pain Scale 7-10) Polyethylene Glycol 17 gm 06/06/20 09:56 Polyethylene Glycol 3350 17 Gm Powd.Pack PO DAILY PRN Constipation Sodium Chloride 2 ml 06/05/20 00:29 06/06/20 08:04 0.9 % Sodium Chloride Flush 3 Ml Syringe IVFLUSH Not Given QSHIFT [facility] Tamsulosin HCl 0.8 mg 06/05/20 09:00 06/06/20 08:05 Tamsulosin Hcl 0.4 Mg Capsule PO Not Given DAILY [facility] Labs CBC & Chem 7: 06/06/20 06:14 06/06/20 06:14 Labs: Laboratory Results - last 24 hr 06/04/20 06/06/20 06/06/20 18:02 06:14 06:14 MCV 104.3 H MCH 34.7 H MCHC 33.2 RDW 12.7 Plt Count 128 L MPV 9.3 L Immature Gran % (Auto) 0.2 Neut % (Auto) 33.8 L Lymph % (Auto) 60.9 H [place] % (Auto) 3.7 Eos % (Auto) 1.2 Baso % (Auto) 0.2 Neut # (Auto) 4.5 Lymph # (Auto) 8.1 H [place] # (Auto) 0.5 Eos # (Auto) 0.2 Baso # (Auto) 0.0 Abs Immat Gran (auto) 0.03 Absolute Nucleated RBC 0.000 Nucleated RBC % (auto) 0.0 Smear Tech's Comments VERIFIED Smear Path Review SEE NOTE Anion Gap 9 L Estim Creat Clear Calc 156.7 Estimated GFR > 60 Random Glucose 107 Calcium 8.4 Microbiology Microbiology Results: Microbiology 06/04/20 19:33 Blood - Venous Blood Culture - Preliminary No growth after 24 hours. 06/04/20 19:28 Blood - Venous Blood Culture - Final Progress Note: A&P (1) Hydronephrosis concurrent with and due to calculi of kidney and ureter: Problem details: see above Status: Acute (2) BPH (benign prostatic hyperplasia): Status: Acute (3) Hypertension: Status: Acute Assessment and Plan: This is a 79 yo M with a PMH of BPH, HTN, Previous renal stones who is admitted for intractable pain due to nephrolithiasis. 1. Obstructing kidney stone Plan for stone removal by Urology today Continue with IV pain control, increase morphine to 4 mg as needed 2. Leukocytosis likely reactive no foci of infection identified to date 3. Uncontrolled pain due to stone increase morphine and hopefully pain control will improve after procedure 4. Constipation miralax 5. HTN slightly elevated this AM continue current dose of norvasc, up titrate as needed 6. BPH flomax Full Code DVT pptx, lovenox
[2020-06-06] MEDS: Morphine Sulfate 4 MG/ML CARTRIDGE IVPUSH ×2 (11:03→19:58)
[2020-06-06] MEDS: 0.9 % Sodium Chloride 1,000 ML 75 ML IVCONT (11:04)
--- NOTE | 2020-06-06 11:25 | PM.UROPN ---
Subjective Subjective Patient reports: still having pain Interval history: right sided pain overnight plan for OR today for ureteroscopy on right side Physical Exam Vital Signs and I&O and Narrative: Vital Signs and I&O: Vital Signs Temp 98.3 F 06/06/20 08:00 Pulse 68 06/06/20 08:04 Resp 19 06/06/20 11:03 BP 132/72 06/06/20 08:04 Pulse Ox 97 06/06/20 08:00 Intake & Output 06/05/20 06/06/20 06/06/20 18:59 06:59 18:59 Intake Total 1211.25 / 2271.25 1060 / 2271.25 852.5 / 852.5 Output Total 300 / 550 250 / 550 Balance 911.25 / 1721.25 810 / 1721.25 852.5 / 852.5 Urine Output (Aver age ml/kg/hr) 0.10 0.08 0.08 Intake: Intake, Oral [place] unt 240 / 600 360 / 600 Intake, IV Amoun t 971.25 / 1671.25 700 / 1671.25 852.5 / 852.5 0.9 % Sodium C hloride 1,000 ml 971.25 / 1671.25 700 / 1671.25 852.5 / 852.5 @ 75 mls/hr IV CONT .[id number] [facility] Rx#:[id number] Output: Output, Urine Am ount 300 / 550 250 / 550 Other: Dinner % Eaten 100% Number of Incont inent Voids 1 Number of Unmeas ured Voids 2 Urine Urinal Urine Color Yellow Body Mass Index 71.6 Const: General: cooperative, healthy appearing, comfortable, no acute distress and well developed Nutritional Appearance: average body habitus Orientation/consciousness: oriented to person, oriented to place and oriented to time HENMT: Head: Yes normal to inspection and Yes atraumatic Ears: external ears normal Eyes: General: appearance normal, both eyes and all related structures Neck: Neck: Yes normal visual inspection Chest: Chest palpation & inspection: normal inspection of the chest and normal palpation of entire chest wall Resp: Effort & Inspection: normal respiratory effort Cardio: Jugular venous distension: no JVD Rate: regular rate Rhythm: regular rhythm GI: Inspection: Yes normal to inspection Skin: General skin exam: no rashes or lesions noted Hair: normal Neuro: General: oriented to person, oriented to place and oriented to time Cognition (Neuro): normal cognition Extrem: General: Yes normal to inspection Progress Note: A&P Assessment and plan (1) Hydronephrosis concurrent with and due to calculi of kidney and ureter: Problem details: see above Status: Acute (2) BPH (benign prostatic hyperplasia): Status: Acute (3) Hypertension: Status: Acute Assessment and Plan: This is a 79 yo M with a PMH of BPH, HTN, Previous renal stones who is admitted for intractable pain due to nephrolithiasis. - plan for operative intervention Fall Risk Details Current Medications: Current Medications Generic Name Dose Route Start Last Admin Trade Name Freq PRN Reason Stop Dose Admin Allopurinol 100 mg 06/05/20 09:00 06/06/20 08:05 Allopurinol 100 Mg Tablet PO Not Given DAILY VY Amlodipine Besylate 5 mg 06/05/20 09:00 06/06/20 08:04 Amlodipine Besylate 5 Mg Tablet PO 5 mg DAILY VY Administration Protocol Enoxaparin Sodium 40 mg 06/05/20 01:00 06/05/20 23:39 Enoxaparin Sodium 40 Mg/0.4 Ml Syringe SUBCUT 40 mg Q24H VY Administration Sodium Chloride 1,000 mls @ 75 mls/hr 06/05/20 00:29 06/06/20 11:04 Ns IVCONT 75 mls/hr .[id number] VY Administration Morphine Sulfate 4 mg 06/06/20 10:02 06/06/20 11:03 Morphine Sulfate 4 Mg/Ml Cartridge IVPUSH 4 mg Q4H PRN Administration Pain, Severe (Pain Scale 7-10) Polyethylene Glycol 17 gm 06/06/20 09:56 Polyethylene Glycol 3350 17 Gm Powd.Pack PO DAILY PRN Constipation Sodium Chloride 2 ml 06/05/20 00:29 06/06/20 08:04 0.9 % Sodium Chloride Flush 3 Ml Syringe IVFLUSH Not Given QSHIFT VY Tamsulosin HCl 0.8 mg 06/05/20 09:00 06/06/20 08:05 Tamsulosin Hcl 0.4 Mg Capsule PO Not Given DAILY VY Time Spent With Patient Time: Total time spent is greater than 50% in coordination of care (as documented) at patient's floor/unit and/or counseling patient: Time with patient: less than 15 minutes
--- NOTE | 2020-06-06 14:09 | MHC.CM.PN ---
nurse adult live in caregiver note electronic medical record reviewed case discussed on mutiple disciplainry rounds , patient will be going for proc esure today and anticipate per hospiltaist discharge tomorrw e no services family to provide transportation
--- NOTE | 2020-06-06 14:29 | P.CONAN_ITS ---
[facility] Past Medical History Medical History BPH (benign prostatic hyperplasia) Colon cancer Gout HTN (hypertension) Functional capacity: independent ambulation Social History Social History Household Members: Spouse Housing: House Do you presently have visiting nurse or other home services: No Alcohol intake: unknown Smoking Status: Former smoker Smoked in Last 30 Days: No Patient Interested in Nicotine Replacement: No Second Hand Smoke Exposure: No Use of substances other than those prescribed or required for medical reasons: No Currently Displaying Signs/Symptoms of Drug Intoxication Withdrawal: No Have you been hit, kicked, punched, or otherwise hurt by someone within the past year? If so, by whom?: No Do you feel safe in your current relationship?: Yes Is there a partner from a previous relationship who is making you feel unsafe now?: No Are you made to feel afraid or neglected: No Advance Directives: No Advance Directives Information Provided: Yes Advance Directives on File: No Do you have thoughts of harming others: None Do you have a plan to hurt others: No Plan Recently lost weight without trying: No service: Yes Current occupational status: retired [email or web address] Allergies Allergy/AdvReac Type Severity Reaction Status Date / Time No Known Allergies Allergy Verified 06/04/20 17:21 Home Medications Medication Instructions Recorded Confirmed Type allopurinol 1 tab PO DAILY 06/04/20 06/04/20 History amlodipine 1 tab PO DAILY 06/04/20 06/04/20 History tamsulosin 0.8 mg PO DAILY 06/04/20 06/04/20 History Exam Exam Date and Time: June 06, 2020 1429 Height,Weight and Vital Signs: Height 6 ft 3 in Weight 260 lb Last Vital Signs Temp 98 F 06/06/20 12:56 Pulse 79 06/06/20 12:56 Resp 18 06/06/20 12:56 BP 167/80 H 06/06/20 12:56 Pulse Ox 96 06/06/20 12:56 Pertinent Lab Results Pertinent Lab Results: Laboratory Tests 06/04/20 06/04/20 06/04/20 17:45 18:01 18:02 WBC RBC Hgb Hct MCV MCH MCHC RDW Plt Count MPV Immature Gran % (Auto) Neut % (Auto) Lymph % (Auto) [place] % (Auto) Eos % (Auto) Baso % (Auto) Neut # (Auto) Lymph # (Auto) [place] # (Auto) Eos # (Auto) Baso # (Auto) Abs Immat Gran (auto) Absolute Nucleated RBC Nucleated RBC % (auto) Neutrophils % (Manual) Band Neutrophils % Lymphocytes % (Manual) Monocytes % (Manual) Neutrophils # (Manual) Lymphocytes # (Manual) Monocytes # (Manual) Smudge Cells Platelet Estimate Plt Morphology Comment RBC Morphology Macrocytosis Ovalocytes Stomatocytes Smear Tech's Comments Smear Path Review Sodium 142 Potassium 4.0 Chloride 105 Carbon Dioxide 27 Anion Gap 14 BUN 15 Creatinine 0.96 Estim Creat Clear Calc 138.7 Estimated GFR > 60 Random Glucose 120 H Lactic Acid Calcium 9.1 Total Bilirubin 0.5 Direct Bilirubin 0.3 AST 26 ALT 35 Alkaline Phosphatase 64 Total Protein 6.9 Albumin 4.3 Lipase 25 Urine Color YELLOW Urine Appearance CLEAR Urine pH 5.5 Ur Specific [place] >= 1.030 H Urine Protein NEG Urine Glucose (UA) NEG Urine Ketones 5 Urine Blood 3+ H Urine Nitrite NEG Ur Leukocyte Esterase NEG Urine RBC 10-14 H Urine WBC 0-2 Ur Squamous Epith Cells NONE Urine Bacteria NONE 06/04/20 06/04/20 06/05/20 18:02 19:33 07:12 WBC 18.2 H 12.1 H RBC 3.85 L 3.49 L Hgb 13.1 L 11.8 L Hct 39.8 L 36.6 L MCV 103.4 H 104.9 H MCH 34.0 H 33.8 H MCHC 32.9 32.2 RDW 12.7 12.7 Plt Count 170 127 L D MPV 9.2 L 9.1 L Immature Gran % (Auto) Cancelled Neut % (Auto) Cancelled Lymph % (Auto) Cancelled [place] % (Auto) Cancelled Eos % (Auto) Cancelled Baso % (Auto) Cancelled Neut # (Auto) Cancelled Lymph # (Auto) Cancelled [place] # (Auto) Cancelled Eos # (Auto) Cancelled Baso # (Auto) Cancelled Abs Immat Gran (auto) Cancelled Absolute Nucleated RBC 0.000 0.000 Nucleated RBC % (auto) 0.0 0.0 Neutrophils % (Manual) 35 L 31 L Band Neutrophils % 0 L 0 L Lymphocytes % (Manual) 61 H 66 H Monocytes % (Manual) 4 3 Neutrophils # (Manual) 6.4 3.8 Lymphocytes # (Manual) 11.1 H 8.0 H Monocytes # (Manual) 0.7 0.4 Smudge Cells PRESENT PRESENT Platelet Estimate NORMAL NORMAL Plt Morphology Comment NORMAL NORMAL RBC Morphology NOTED NOTED Macrocytosis 1+ 1+ Ovalocytes 1+ Stomatocytes 1+ Smear Tech's Comments Smear Path Review SEE NOTE Sodium Potassium Chloride Carbon Dioxide Anion Gap BUN Creatinine Estim Creat Clear Calc Estimated GFR Random Glucose Lactic Acid 1.4 Calcium Total Bilirubin Direct Bilirubin AST ALT Alkaline Phosphatase Total Protein Albumin Lipase Urine Color Urine Appearance Urine pH Ur Specific [place] Urine Protein Urine Glucose (UA) Urine Ketones Urine Blood Urine Nitrite Ur Leukocyte Esterase Urine RBC Urine WBC Ur Squamous Epith Cells Urine Bacteria 06/05/20 06/06/20 06/06/20 07:12 06:14 06:14 WBC 13.2 H RBC 3.52 L Hgb 12.2 L Hct 36.7 L MCV 104.3 H MCH 34.7 H MCHC 33.2 RDW 12.7 Plt Count 128 L MPV 9.3 L Immature Gran % (Auto) 0.2 Neut % (Auto) 33.8 L Lymph % (Auto) 60.9 H [place] % (Auto) 3.7 Eos % (Auto) 1.2 Baso % (Auto) 0.2 Neut # (Auto) 4.5 Lymph # (Auto) 8.1 H [place] # (Auto) 0.5 Eos # (Auto) 0.2 Baso # (Auto) 0.0 Abs Immat Gran (auto) 0.03 Absolute Nucleated RBC 0.000 Nucleated RBC % (auto) 0.0 Neutrophils % (Manual) Band Neutrophils % Lymphocytes % (Manual) Monocytes % (Manual) Neutrophils # (Manual) Lymphocytes # (Manual) Monocytes # (Manual) Smudge Cells Platelet Estimate Plt Morphology Comment RBC Morphology Macrocytosis Ovalocytes Stomatocytes Smear Tech's Comments VERIFIED Smear Path Review Sodium 141 141 Potassium 4.3 4.1 Chloride 110 H 109 H Carbon Dioxide 26 27 Anion Gap 9 L 9 L BUN 15 15 Creatinine 0.80 0.85 Estim Creat Clear Calc 166.5 156.7 Estimated GFR > 60 > 60 Random Glucose 112 107 Lactic Acid Calcium 8.2 L 8.4 Total Bilirubin Direct Bilirubin AST ALT Alkaline Phosphatase Total Protein Albumin Lipase Urine Color Urine Appearance Urine pH Ur Specific [place] Urine Protein Urine Glucose (UA) Urine Ketones Urine Blood Urine Nitrite Ur Leukocyte Esterase Urine RBC Urine WBC Ur Squamous Epith Cells Urine Bacteria Airway Mallampati Class: III TM Dist: >3cm Neck ROM: Full Partial: Upper Heart: RRR Lungs: NL Assessment and Plan Assessment Anesthesia Assessment: Anesthesia Plan Discussed, Consent Obtained and Chart Reviewed Final Anesthetic Review NPO: Yes ASA Class: II Final Preanesthetic Review: No Changes in Pt Med Stat, Meds & Allergies Reviewed, Consent Obtained/Reviewed, Med/Surg/Anes Hx Reviewed and Anes Risks/Benef Reviewed Patient Risk: Intermediate Procedure Risk: Low Anesthetic Plan Anesthetic Plan: GA Disposition: Standard PACU
[2020-06-06] MEDS: Lactated Ringers 1,000 ML 50 ML IVCONT (15:26)
--- NOTE | 2020-06-06 17:08 | FL_ITS ---
EXAMINATION: XR FLUOROSCOPY CLINICAL INFORMATION: Ureteral stones COMPARISON: CT abdomen and pelvis 06/04/2020 TECHNIQUE: Fluoroscopy was provided in the OR during ureteroscopy. Fluoroscopy time was 73 seconds. Dose was 47 mGy. 2 fluoroscopic images were saved to the PACS FINDINGS: 2 fluoroscopic images show cannulation of the right ureter. No evidence of contrast extravasation. IMPRESSION: Fluoroscopy was provided during ureteroscopy. Please refer to operative report for full procedure details.
[2020-06-06] MEDS: levoFLOXacin/D5W 500 MG/100 ML PIGGYBACK 100 MG IV (17:11)
--- NOTE | 2020-06-06 17:52 | P.CONAN_ITS ---
[facility] Past Medical History Medical History BPH (benign prostatic hyperplasia) Colon cancer Gout HTN (hypertension) Functional capacity: independent ambulation Social History Social History Household Members: Spouse Housing: House Do you presently have visiting nurse or other home services: No Alcohol intake: unknown Smoking Status: Former smoker Smoked in Last 30 Days: No Patient Interested in Nicotine Replacement: No Second Hand Smoke Exposure: No Use of substances other than those prescribed or required for medical reasons: No Currently Displaying Signs/Symptoms of Drug Intoxication Withdrawal: No Have you been hit, kicked, punched, or otherwise hurt by someone within the past year? If so, by whom?: No Do you feel safe in your current relationship?: Yes Is there a partner from a previous relationship who is making you feel unsafe now?: No Are you made to feel afraid or neglected: No Advance Directives: No Advance Directives Information Provided: Yes Advance Directives on File: No Do you have thoughts of harming others: None Do you have a plan to hurt others: No Plan Recently lost weight without trying: No service: Yes Current occupational status: retired [employer] Allergies Allergy/AdvReac Type Severity Reaction Status Date / Time No Known Allergies Allergy Verified 06/04/20 17:21 Home Medications Medication Instructions Recorded Confirmed Type allopurinol 1 tab PO DAILY 06/04/20 06/04/20 History amlodipine 1 tab PO DAILY 06/04/20 06/04/20 History tamsulosin 0.8 mg PO DAILY 06/04/20 06/04/20 History Exam Exam Date and Time: June 06, 2020 175 Height,Weight and Vital Signs: Height 6 ft 3 in Weight 118 kg Last Vital Signs Temp 98 F 06/06/20 12:56 Pulse 79 06/06/20 12:56 Resp 18 06/06/20 12:56 BP 167/80 H 06/06/20 12:56 Pulse Ox 96 06/06/20 12:56 Pertinent Lab Results Pertinent Lab Results: Laboratory Tests 06/04/20 06/04/20 06/04/20 17:45 18:01 18:02 WBC RBC Hgb Hct MCV MCH MCHC RDW Plt Count MPV Immature Gran % (Auto) Neut % (Auto) Lymph % (Auto) [place] % (Auto) Eos % (Auto) Baso % (Auto) Neut # (Auto) Lymph # (Auto) [place] # (Auto) Eos # (Auto) Baso # (Auto) Abs Immat Gran (auto) Absolute Nucleated RBC Nucleated RBC % (auto) Neutrophils % (Manual) Band Neutrophils % Lymphocytes % (Manual) Monocytes % (Manual) Neutrophils # (Manual) Lymphocytes # (Manual) Monocytes # (Manual) Smudge Cells Platelet Estimate Plt Morphology Comment RBC Morphology Macrocytosis Ovalocytes Stomatocytes Smear Tech's Comments Smear Path Review Sodium 142 Potassium 4.0 Chloride 105 Carbon Dioxide 27 Anion Gap 14 BUN 15 Creatinine 0.96 Estim Creat Clear Calc 138.7 Estimated GFR > 60 Random Glucose 120 H Lactic Acid Calcium 9.1 Total Bilirubin 0.5 Direct Bilirubin 0.3 AST 26 ALT 35 Alkaline Phosphatase 64 Total Protein 6.9 Albumin 4.3 Lipase 25 Urine Color YELLOW Urine Appearance CLEAR Urine pH 5.5 Ur Specific [place] >= 1.030 H Urine Protein NEG Urine Glucose (UA) NEG Urine Ketones 5 Urine Blood 3+ H Urine Nitrite NEG Ur Leukocyte Esterase NEG Urine RBC 10-14 H Urine WBC 0-2 Ur Squamous Epith Cells NONE Urine Bacteria NONE 06/04/20 06/04/20 06/05/20 18:02 19:33 07:12 WBC 18.2 H 12.1 H RBC 3.85 L 3.49 L Hgb 13.1 L 11.8 L Hct 39.8 L 36.6 L MCV 103.4 H 104.9 H MCH 34.0 H 33.8 H MCHC 32.9 32.2 RDW 12.7 12.7 Plt Count 170 127 L D MPV 9.2 L 9.1 L Immature Gran % (Auto) Cancelled Neut % (Auto) Cancelled Lymph % (Auto) Cancelled [place] % (Auto) Cancelled Eos % (Auto) Cancelled Baso % (Auto) Cancelled Neut # (Auto) Cancelled Lymph # (Auto) Cancelled [place] # (Auto) Cancelled Eos # (Auto) Cancelled Baso # (Auto) Cancelled Abs Immat Gran (auto) Cancelled Absolute Nucleated RBC 0.000 0.000 Nucleated RBC % (auto) 0.0 0.0 Neutrophils % (Manual) 35 L 31 L Band Neutrophils % 0 L 0 L Lymphocytes % (Manual) 61 H 66 H Monocytes % (Manual) 4 3 Neutrophils # (Manual) 6.4 3.8 Lymphocytes # (Manual) 11.1 H 8.0 H Monocytes # (Manual) 0.7 0.4 Smudge Cells PRESENT PRESENT Platelet Estimate NORMAL NORMAL Plt Morphology Comment NORMAL NORMAL RBC Morphology NOTED NOTED Macrocytosis 1+ 1+ Ovalocytes 1+ Stomatocytes 1+ Smear Tech's Comments Smear Path Review SEE NOTE Sodium Potassium Chloride Carbon Dioxide Anion Gap BUN Creatinine Estim Creat Clear Calc Estimated GFR Random Glucose Lactic Acid 1.4 Calcium Total Bilirubin Direct Bilirubin AST ALT Alkaline Phosphatase Total Protein Albumin Lipase Urine Color Urine Appearance Urine pH Ur Specific [place] Urine Protein Urine Glucose (UA) Urine Ketones Urine Blood Urine Nitrite Ur Leukocyte Esterase Urine RBC Urine WBC Ur Squamous Epith Cells Urine Bacteria 06/05/20 06/06/20 06/06/20 07:12 06:14 06:14 WBC 13.2 H RBC 3.52 L Hgb 12.2 L Hct 36.7 L MCV 104.3 H MCH 34.7 H MCHC 33.2 RDW 12.7 Plt Count 128 L MPV 9.3 L Immature Gran % (Auto) 0.2 Neut % (Auto) 33.8 L Lymph % (Auto) 60.9 H [place] % (Auto) 3.7 Eos % (Auto) 1.2 Baso % (Auto) 0.2 Neut # (Auto) 4.5 Lymph # (Auto) 8.1 H [place] # (Auto) 0.5 Eos # (Auto) 0.2 Baso # (Auto) 0.0 Abs Immat Gran (auto) 0.03 Absolute Nucleated RBC 0.000 Nucleated RBC % (auto) 0.0 Neutrophils % (Manual) Band Neutrophils % Lymphocytes % (Manual) Monocytes % (Manual) Neutrophils # (Manual) Lymphocytes # (Manual) Monocytes # (Manual) Smudge Cells Platelet Estimate Plt Morphology Comment RBC Morphology Macrocytosis Ovalocytes Stomatocytes Smear Tech's Comments VERIFIED Smear Path Review Sodium 141 141 Potassium 4.3 4.1 Chloride 110 H 109 H Carbon Dioxide 26 27 Anion Gap 9 L 9 L BUN 15 15 Creatinine 0.80 0.85 Estim Creat Clear Calc 166.5 156.7 Estimated GFR > 60 > 60 Random Glucose 112 107 Lactic Acid Calcium 8.2 L 8.4 Total Bilirubin Direct Bilirubin AST ALT Alkaline Phosphatase Total Protein Albumin Lipase Urine Color Urine Appearance Urine pH Ur Specific [place] Urine Protein Urine Glucose (UA) Urine Ketones Urine Blood Urine Nitrite Ur Leukocyte Esterase Urine RBC Urine WBC Ur Squamous Epith Cells Urine Bacteria
--- NOTE | 2020-06-06 18:05 | HO.ANESPROP2 ---
[facility] Past Medical History Medical History BPH (benign prostatic hyperplasia) Colon cancer Gout HTN (hypertension) Functional capacity: independent ambulation Social History Social History Household Members: Spouse Housing: House Do you presently have visiting nurse or other home services: No Alcohol intake: unknown Smoking Status: Former smoker Smoked in Last 30 Days: No Patient Interested in Nicotine Replacement: No Second Hand Smoke Exposure: No Use of substances other than those prescribed or required for medical reasons: No Currently Displaying Signs/Symptoms of Drug Intoxication Withdrawal: No Have you been hit, kicked, punched, or otherwise hurt by someone within the past year? If so, by whom?: No Do you feel safe in your current relationship?: Yes Is there a partner from a previous relationship who is making you feel unsafe now?: No Are you made to feel afraid or neglected: No Advance Directives: No Advance Directives Information Provided: Yes Advance Directives on File: No Do you have thoughts of harming others: None Do you have a plan to hurt others: No Plan Recently lost weight without trying: No service: Yes Current occupational status: retired [employer] Allergies Allergy/AdvReac Type Severity Reaction Status Date / Time No Known Allergies Allergy Verified 06/04/20 17:21 Home Medications Medication Instructions Recorded Confirmed Type allopurinol 1 tab PO DAILY 06/04/20 06/04/20 History amlodipine 1 tab PO DAILY 06/04/20 06/04/20 History tamsulosin 0.8 mg PO DAILY 06/04/20 06/04/20 History Exam Exam Date and Time: June 06, 2020 1805 Height,Weight and Vital Signs: Height 6 ft 3 in Weight 118 kg Last Vital Signs Temp 98 F 06/06/20 12:56 Pulse 79 06/06/20 12:56 Resp 18 06/06/20 12:56 BP 167/80 H 06/06/20 12:56 Pulse Ox 96 06/06/20 12:56 Pertinent Lab Results Pertinent Lab Results: Laboratory Tests 06/04/20 06/04/20 06/04/20 17:45 18:01 18:02 WBC RBC Hgb Hct MCV MCH MCHC RDW Plt Count MPV Immature Gran % (Auto) Neut % (Auto) Lymph % (Auto) [place] % (Auto) Eos % (Auto) Baso % (Auto) Neut # (Auto) Lymph # (Auto) [place] # (Auto) Eos # (Auto) Baso # (Auto) Abs Immat Gran (auto) Absolute Nucleated RBC Nucleated RBC % (auto) Neutrophils % (Manual) Band Neutrophils % Lymphocytes % (Manual) Monocytes % (Manual) Neutrophils # (Manual) Lymphocytes # (Manual) Monocytes # (Manual) Smudge Cells Platelet Estimate Plt Morphology Comment RBC Morphology Macrocytosis Ovalocytes Stomatocytes Smear Tech's Comments Smear Path Review Sodium 142 Potassium 4.0 Chloride 105 Carbon Dioxide 27 Anion Gap 14 BUN 15 Creatinine 0.96 Estim Creat Clear Calc 138.7 Estimated GFR > 60 Random Glucose 120 H Lactic Acid Calcium 9.1 Total Bilirubin 0.5 Direct Bilirubin 0.3 AST 26 ALT 35 Alkaline Phosphatase 64 Total Protein 6.9 Albumin 4.3 Lipase 25 Urine Color YELLOW Urine Appearance CLEAR Urine pH 5.5 Ur Specific [place] >= 1.030 H Urine Protein NEG Urine Glucose (UA) NEG Urine Ketones 5 Urine Blood 3+ H Urine Nitrite NEG Ur Leukocyte Esterase NEG Urine RBC 10-14 H Urine WBC 0-2 Ur Squamous Epith Cells NONE Urine Bacteria NONE 06/04/20 06/04/20 06/05/20 18:02 19:33 07:12 WBC 18.2 H 12.1 H RBC 3.85 L 3.49 L Hgb 13.1 L 11.8 L Hct 39.8 L 36.6 L MCV 103.4 H 104.9 H MCH 34.0 H 33.8 H MCHC 32.9 32.2 RDW 12.7 12.7 Plt Count 170 127 L D MPV 9.2 L 9.1 L Immature Gran % (Auto) Cancelled Neut % (Auto) Cancelled Lymph % (Auto) Cancelled [place] % (Auto) Cancelled Eos % (Auto) Cancelled Baso % (Auto) Cancelled Neut # (Auto) Cancelled Lymph # (Auto) Cancelled [place] # (Auto) Cancelled Eos # (Auto) Cancelled Baso # (Auto) Cancelled Abs Immat Gran (auto) Cancelled Absolute Nucleated RBC 0.000 0.000 Nucleated RBC % (auto) 0.0 0.0 Neutrophils % (Manual) 35 L 31 L Band Neutrophils % 0 L 0 L Lymphocytes % (Manual) 61 H 66 H Monocytes % (Manual) 4 3 Neutrophils # (Manual) 6.4 3.8 Lymphocytes # (Manual) 11.1 H 8.0 H Monocytes # (Manual) 0.7 0.4 Smudge Cells PRESENT PRESENT Platelet Estimate NORMAL NORMAL Plt Morphology Comment NORMAL NORMAL RBC Morphology NOTED NOTED Macrocytosis 1+ 1+ Ovalocytes 1+ Stomatocytes 1+ Smear Tech's Comments Smear Path Review SEE NOTE Sodium Potassium Chloride Carbon Dioxide Anion Gap BUN Creatinine Estim Creat Clear Calc Estimated GFR Random Glucose Lactic Acid 1.4 Calcium Total Bilirubin Direct Bilirubin AST ALT Alkaline Phosphatase Total Protein Albumin Lipase Urine Color Urine Appearance Urine pH Ur Specific [place] Urine Protein Urine Glucose (UA) Urine Ketones Urine Blood Urine Nitrite Ur Leukocyte Esterase Urine RBC Urine WBC Ur Squamous Epith Cells Urine Bacteria 06/05/20 06/06/20 06/06/20 07:12 06:14 06:14 WBC 13.2 H RBC 3.52 L Hgb 12.2 L Hct 36.7 L MCV 104.3 H MCH 34.7 H MCHC 33.2 RDW 12.7 Plt Count 128 L MPV 9.3 L Immature Gran % (Auto) 0.2 Neut % (Auto) 33.8 L Lymph % (Auto) 60.[address] [place] % (Auto) 3.7 Eos % (Auto) 1.2 Baso % (Auto) 0.2 Neut # (Auto) 4.5 Lymph # (Auto) 8.[address] [place] # (Auto) 0.5 Eos # (Auto) 0.2 Baso # (Auto) 0.0 Abs Immat Gran (auto) 0.03 Absolute Nucleated RBC 0.000 Nucleated RBC % (auto) 0.0 Neutrophils % (Manual) Band Neutrophils % Lymphocytes % (Manual) Monocytes % (Manual) Neutrophils # (Manual) Lymphocytes # (Manual) Monocytes # (Manual) Smudge Cells Platelet Estimate Plt Morphology Comment RBC Morphology Macrocytosis Ovalocytes Stomatocytes Smear Tech's Comments VERIFIED Smear Path Review Sodium 141 141 Potassium 4.3 4.1 Chloride 110 H 109 H Carbon Dioxide 26 27 Anion Gap 9 L 9 L BUN 15 15 Creatinine 0.80 0.85 Estim Creat Clear Calc 166.5 156.7 Estimated GFR > 60 > 60 Random Glucose 112 107 Lactic Acid Calcium 8.2 L 8.4 Total Bilirubin Direct Bilirubin AST ALT Alkaline Phosphatase Total Protein Albumin Lipase Urine Color Urine Appearance Urine pH Ur Specific [place] Urine Protein Urine Glucose (UA) Urine Ketones Urine Blood Urine Nitrite Ur Leukocyte Esterase Urine RBC Urine WBC Ur Squamous Epith Cells Urine Bacteria Assessment and Plan Assessment Anesthesia Assessment: Anesthesia Plan Discussed and Smoking Cess. Discussed Final Anesthetic Review NPO: Yes (8h) ASA Class: III Final Preanesthetic Review: No Changes in Pt Med Stat, Meds & Allergies Reviewed, Consent Obtained/Reviewed and Med/Surg/Anes Hx Reviewed Patient Risk: Intermediate Procedure Risk: Low Anesthetic Plan Anesthetic Plan: GA (LMA) Disposition: Standard PACU
--- NOTE | 2020-06-06 18:19 | PM.OP ---
Brief Operative Note Date of procedure: 06/06/20 Pre-op diagnosis: right proximal ureter stone Post-op diagnosis: same Procedure: right retrograde, dilate ureter, ureteroscopy, laser lithotripsy, stent Implants: stent [id number] Anesthesia: GETA Pathology: other (stones) Condition: stable Disposition: same day
--- NOTE | 2020-06-06 18:21 | P.PNUR_ITS ---
Subjective Subjective Interval history: finished stone procedure could d/c tonight if he feels up to it Physical Exam Vital Signs and I&O and Narrative: Vital Signs and I&O: Vital Signs Temp 98 F 06/06/20 12:56 Pulse 79 06/06/20 12:56 Resp 18 06/06/20 12:56 BP 167/80 H 06/06/20 12:56 Pulse Ox 96 06/06/20 12:56 Intake & Output 06/05/20 06/06/20 06/06/20 18:59 06:59 18:59 Intake Total 1211.25 / 2271.25 1060 / 2271.25 997.5 / 997.5 Output Total 300 / 550 250 / 550 350 / 350 Balance 911.25 / 1721.25 810 / 1721.25 647.5 / 647.5 Urine Output (Aver age ml/kg/hr) 0.10 0.08 0.25 Weight 260 lb 2.327 oz Intake: Intake, Oral Nava unt 240 / 600 360 / 600 Intake, IV Amoun t 971.25 / 1671.25 700 / 1671.25 997.5 / 997.5 0.9 % Sodium C hloride 1,000 ml 971.25 / 1671.25 700 / 1671.25 997.5 / 997.5 @ 75 mls/hr IV CONT .[id number] [facility] Rx#:[id number] Output: Output, Urine Am ount 300 / 550 250 / 550 350 / 350 Other: NPO Yes: 8h Dinner % Eaten 100% Number of Incont inent Voids 1 Number of Unmeas ured Voids 2 Urine Urinal Urine Color Yellow Body Mass Index 32.5 Const: General: cooperative, healthy appearing, comfortable and no acute distress Nutritional Appearance: average body habitus Orientation/consciousness: oriented to person, oriented to place and oriented to time Eyes: General: appearance normal, both eyes and all related structures Chest: Chest palpation & inspection: normal inspection of the chest Resp: Effort & Inspection: normal respiratory effort Cardio: Rate: regular rate GI: Inspection: Yes normal to inspection Skin: Hair: normal Neuro: General: oriented to person, oriented to place and oriented to time Extrem: General: Yes normal to inspection Progress Note: A&P Assessment and plan (1) Hydronephrosis concurrent with and due to calculi of kidney and ureter: Problem details: stone has been managed Status: Acute Assessment and Plan: stone has been managed Fall Risk Details Current Medications: Current Medications Generic Name Dose Route Start Last Admin Trade Name Freq PRN Reason Stop Dose Admin Acetaminophen 650 mg 06/06/20 18:17 Acetaminophen 325 Mg Tablet PO 06/06/20 18:18 ONCE ONE Allopurinol 100 mg 06/05/20 09:00 06/06/20 08:05 Allopurinol 100 Mg Tablet PO Not Given DAILY VY Amlodipine Besylate 5 mg 06/05/20 09:00 06/06/20 08:04 Amlodipine Besylate 5 Mg Tablet PO 5 mg DAILY VY Administration Protocol Enoxaparin Sodium 40 mg 06/05/20 01:00 06/05/20 23:39 Enoxaparin Sodium 40 Mg/0.4 Ml Syringe SUBCUT 40 mg Q24H VY Administration Fentanyl 25 mcg 06/06/20 14:32 Fentanyl Citrate/Pf 100 Mcg/2 Ml Vial IVPUSH Q5M PRN Pain, Moderate (Pain Scale 4-6 Fentanyl 50 mcg 06/06/20 17:43 Fentanyl Citrate/Pf 100 Mcg/2 Ml Vial IVPUSH Q5M PRN Pain, Severe (Pain Scale 7-10) Sodium Chloride 1,000 mls @ 75 mls/hr 06/05/20 00:29 06/06/20 13:00 Ns IVCONT 0 mls/hr .[id number] VY Infusion Lactated Ringer's 1,000 mls @ 50 mls/hr 06/06/20 15:30 06/06/20 15:26 Lr IVCONT 50 mls/hr .Q20H VY Administration Promethazine HCl 12.5 mg/ 50.5 mls @ 202 mls/hr 06/06/20 17:43 Sodium Chloride IV ONCE PRN Nausea and Vomiting Morphine Sulfate 4 mg 06/06/20 10:02 06/06/20 11:03 Morphine Sulfate 4 Mg/Ml Cartridge IVPUSH 4 mg Q4H PRN Administration Pain, Severe (Pain Scale 7-10) Ondansetron HCl 4 mg 06/06/20 14:32 Ondansetron Hcl 4 Mg/2 Ml Vial IVPUSH ONCE PRN Nausea and Vomiting Ondansetron HCl 4 mg 06/06/20 17:43 Ondansetron Hcl 4 Mg/2 Ml Vial IVPUSH ONCE PRN Nausea and Vomiting Oxycodone HCl 5 mg 06/06/20 17:43 Oxycodone Hcl Immed Release 5 Mg Tablet PO ONCE PRN Pain, Mild (Pain Scale 1-3) Oxycodone HCl 5 mg 06/06/20 18:17 Oxycodone Hcl Immed Release 5 Mg Tablet PO Q4H PRN Breakthrough Pain Phenazopyridine HCl 100 mg 06/06/20 18:17 Phenazopyridine Hcl 100 Mg Tablet PO 06/06/20 18:18 ONCE ONE Polyethylene Glycol 17 gm 06/06/20 09:56 Polyethylene Glycol 3350 17 Gm Powd.Pack PO DAILY PRN Constipation Sodium Chloride 2 ml 06/05/20 00:29 06/06/20 16:56 0.9 % Sodium Chloride Flush 3 Ml Syringe IVFLUSH Not Given QSHIFT VY Tamsulosin HCl 0.8 mg 06/05/20 09:00 06/06/20 08:05 Tamsulosin Hcl 0.4 Mg Capsule PO Not Given DAILY VY Time Spent With Patient Time: Total time spent is greater than 50% in coordination of care (as documented) at patient's floor/unit and/or counseling patient: Time with patient: less than 15 minutes
[2020-06-06] MEDS: oxyCODONE HCl Immed Release 5 MG TABLET PO (18:55)
[2020-06-07] VITALS (7 sets, daily range): BP systolic 142–164; BP diastolic 56–82; PULSE 61–79; RESP 18–19; TEMP 36.1–36.9; O2SAT 92–98
[2020-06-07] MEDS: Morphine Sulfate 4 MG/ML CARTRIDGE IVPUSH ×3 (00:32→07:56)
[2020-06-07] MEDS: 0.9 % Sodium Chloride Flush 3 ML SYRINGE 2 ML IVFLUSH (00:33)
[2020-06-07] MEDS: Enoxaparin Sodium 40 MG/0.4 ML SYRINGE SUBCUT (00:35)
[2020-06-07] MEDS: oxyCODONE HCl Immed Release 5 MG TABLET PO ×2 (02:10→06:16)
[2020-06-07] MEDS: allopurinoL 100 MG TABLET PO (07:53)
[2020-06-07] MEDS: amLODIPine Besylate 5 MG TABLET PO (07:53)
[2020-06-07] MEDS: Tamsulosin HCL 0.4 MG CAPSULE 0.8 MG PO (07:55)
[2020-06-07] MEDS: polyethylene glycoL 3350 17 GM POWD.PACK PO (10:28)
[2020-06-07] MEDS: 0.9 % Sodium Chloride 1,000 ML 75 ML IVCONT (10:30)
--- NOTE | 2020-06-07 13:18 | PM.DS ---
DS: Providers Provider Date of admission: 06/04/20 23:39 Primary care physician: Cj Norwood MD DS: Diagnosis Discharge Diagnosis (1) Hydronephrosis concurrent with and due to calculi of kidney and ureter: Status: Acute Problem details: stone has been managed (2) CLL (chronic lymphocytic leukemia): Status: Acute (3) Hypertension: Status: Acute DS: Summary Hospital Course Hospital Course: From the admission H&P: 79 y/o male who presented from home c/o right sided back pain. Per history provided by the patient, for the past 1 week has been having on and off right sided back pain, sharp like, 10/10 in intensity which worsened and now has been constant for the past day. Patient denies any chest pain, SOB, nausea, vomiting, diarrhea, fever or difficulty urinating. Patient does reports a significant hx of kidney stones in the past but denies requiring any urologic procedure. On presentation to the ED BP noted to be 142/63, HR of 70, no evidence of fever. WBC of ~18 noted. Patient has hx of CLL not on treatment at present. CT abdomen showed right sided obstructing ureteropelvic junction stone. Urology contacted per ED who recommended patient to be admitted under medicine and urology to evaluate in the am (Dr Cespedes). Patient seen and evaluated at the bedside, laying down in bed in no acute distress. ROS as above otherwise negative. Physical exam unremarkable on exam. Hospital Course: patient presented with right flank pain secondary to obstructing kidney stone. He was seen in consultation by Urology and underwent urological procedure with stent placement. He was monitored overnight and subsequently was discharged home with close follow-up with Dr. Cespedes from Urology in about 1-2 weeks. Of note, patient did have significant leukocytosis which was down trending but had no evidence of any infection. He does have a history of CLL (chart was reveiwed by oncologist at [facility] [place] and deemed not to need any current hematological inpatient evaluation) and will be following up with his primary oncologist. Time Spent with Patient Time attestation: Total time spent providing and/or coordinating discharge services: Physical Exam Vital Signs and I&O and Narrative: Vital Signs and I&O: Vital Signs Temp 96.9 F 06/07/20 11:49 Pulse 79 06/07/20 11:49 Resp 18 06/07/20 11:49 BP 164/80 H 06/07/20 11:49 Pulse Ox 98 06/07/20 11:49 Intake & Output 06/06/20 06/07/20 06/07/20 18:59 06:59 18:59 Intake Total 997.5 / 1097.5 100 / 1097.5 1799.167 / 1799.16 7 Output Total 350 / 553 203 / 553 Balance 647.5 / 544.5 -103 / 544.5 1799.167 / 1799.16 7 Urine Output (Aver age ml/kg/hr) 0.25 0.14 0.14 Weight 118 kg Intake: Intake, IV Amoun t 997.5 / 1097.5 100 / 1097.5 1799.167 / 1799.16 7 levoFLOXacin/D 5W 500 mg In 100 100 / 100 ml @ 100 mls/h r IV ONCE ONE Rx# :[id number] 0.9 % Sodium C hloride 1,000 ml 997.5 / 997.5 0 / 997.5 855 / 855 @ 75 mls/hr IV CONT .[id number] [facility] Rx#:[id number] Lactated Ringe rs 1,000 ml @ 50 944.167 / 944.167 mls/hr IVCONT .Q20H [facility] Rx#: [id number] Output: Output, Urine Am ount 350 / 553 203 / 553 Other: NPO Yes: 8h Yes Number of Incont inent Voids 1 Urine Urinal Urine Color Red Tinged Body Mass Index 32.5 DS: Data Data Completed and Pending Pending studies at discharge: Pending at discharge 06/06/20 18:14 Surgical [PTH] Routine Labs on day of discharge: Preliminary micro results at discharge 06/04/20 19:33 Blood Culture - Preliminary Blood - Venous No growth after 48 hours. Discharge Plan Discharge Patient Disposition: Home, Self-Care Referrals: Wilmer Cespedes MD [Physician] - 1 Week (call office for follow up) Cj Norwood MD [Primary Care Provider] - Discharge Medications: New oxycodone 5 mg Tablet 5 mg PO Q4H PRN (Reason: Breakthrough Pain) Qty: 30 RF: 0 Continued tamsulosin 0.4 mg capsule 0.8 mg PO DAILY RF: 0 amlodipine 5 mg tablet 1 tab PO DAILY RF: 0 allopurinol 100 mg tablet 1 tab PO DAILY RF: 0 Discharge Orders: Discharge Order (Routine); Ordered 06/07/20 Ordered By: Leandro Browne Diet: advance to your usual diet Activity on Discharge: As tolerated Visit Report Forms: Patient Portal Discharge page Care Plan Goals: To Follow up with Dr. Cespedes for stones Health Concerns: Kidney Stones -- follow up with Dr. Cespedes. CLL -- follow up with your cancer doctors in [place] Plan of Treatment: To follow up with urology
--- NOTE | 2020-06-07 13:48 | MHC.CM.PN ---
nurse care management assistant bnote electronic medical record reviewed along with case discussed n multiple discipalinery rounds patient will be discharge home today with no services patient jose juan; follow up his pcp for post discharge transportation family
--- NOTE | 2020-06-07 15:24 | HO.POSTANES ---
Post Anesthesia Evaluation Post Anesthesia Evaluation Vital Signs: Vital Signs Temp Pulse Resp BP Pulse Ox 06/07/20 11:49 96.9 F 79 18 164/80 H 98 06/07/20 07:54 98.0 F 73 18 160/82 H 98 06/07/20 04:32 98.4 F 61 19 152/79 H 96 06/07/20 04:10 18 06/07/20 04:00 98.2 F 19 142/56 H 92 Anesthesia: General Mental Status: Awake Pain Control: Satisfactory Nausea/Vomiting: None Hydration: Adequate Anesthesia-Related Issues: No Anes. Related Issues
--- NOTE | 2020-06-24 09:52 | P.OP_ITS ---
Operative Note Operative Note Narrative: PreOperative Diagnosis: right proximal ureteric stone Post Operative Diagnosis: right proximal ureteric stone Procedure: 1. cystoscopy with right retrograde, 2. dilatation right ureteric orifice under fluoroscopy 3. right ureteroscopy with laser lithotripsy and stone basketing 4. right stent placement Surgeon: Dr Wilmer Cespedes Anesthesia: local Indications for procedure: this is a 79-year-old male. Presented to the hospital with right-sided flank pain. On imaging found to have a 6 mm right proximal ureteric stone. Mild right hydronephrosis. Does have history of stones. Offered intervention. He would like to proceed with ureteroscopy laser lithotripsy and stent placement. He understands he may need subsequent procedures depending on residual fragments. Procedure: After informed consent was verified patient was brought to operating placed in supine position. Anesthesia was administered per protocol. Patient was placed in modified dorsal lithotomy position and prepped and draped in sterile fashion. Safety pause time-out was performed. Antibiotics have been given. Twenty-one Polish cystoscope inserted per urethra. no abnormality noted of anterior posterior urethra. Both ureteric orifices were normal position. Right ureteric orifice was seen cannulated and retrograde examination performed. Small filling defects seen in upper portion of the right ureter. A sensor guidewire was placed up to the level renal pelvis. The 21 Polish cystoscope was removed. Using the internal cannula from ureteric access sheath the right ureteric orifice was dilated under fluoroscopy. A ureteric access sheath was then advanced. A Sensor guidewire was removed. A digital flexible ureteroscope was then placed through the access sheath and the stone was encountered. Using a 200 micron fiber the stone was broken up. It did travel back up into the kidney. We were able to addressed stone in the renal pelvis and using a Zero tip basket remove fragments. Once all visible fragments removed we were able to place a Sensor guidewire through the digital ureteroscope. The access sheath was removed. The Sensor guidewire was backloaded through a cystoscope. The cystoscope was advanced into the bladder. A 6 Polish by 26 cm stent was then placed over the wire up to the level of renal pelvis and a good coil was seen under fluoroscopy. A good coil seen in the bladder with direct visualization. He tolerated procedure well was extubated in the operating transferred in stable condition to the recovery area. Stent will be removed in the office. Pathology stones collected above Drain 6 Polish by 26 cm double-J stent on right side
== END 2020-06-07 13:37 | disposition home or self-care (01) | DRG 660 ==
LOC: HO.ED 21:40 → HO.S3 23:59
PROVIDERS: Internal Medicine; Urology; Admitting Provider Internal Medicine; Emergency Provider Emergency Medicine; PCP Internal Medicine; Visit Provider Family Medicine
PROC: 0T768DZ Dilation of Right Ureter with Intraluminal Device, Via Natural or Artificial Opening Endoscopic (ICD-10-PCS; principal; 2020-06-06 14:30)
DX: N13.2 Hydronephrosis with renal and ureteral calculous obstruction (principal); C91.10 Chronic lymphocytic leukemia of B-cell type not having achieved remission; M10.9 Gout, unspecified; I10 Essential (primary) hypertension; N40.0 Benign prostatic hyperplasia without lower urinary tract symptoms; Z87.442 Personal history of urinary calculi; Z79.899 Other long term (current) drug therapy
CPT/HCPCS: 36415; 71046; 74176; 80048; 80076; 81001; 82365; 83605; 83690; 85007; 85025; 85027; 85060; 87040; 87086; 88300; 96361; 96374; 96375; 99284; 99285; C1769; C1894; C2617; J0696; J1650; J1885; J1956; J2270; J2405; J3010; Q9967

== ENCOUNTER → 2020-06-16 09:48 | Outpatient (BNVA) | payer MEDICARE, SELFPAY | PROVIDERS: PCP Internal Medicine; Visit Provider Urology | DX: Z48.816 Encounter for surgical aftercare following surgery on the genitourinary system (principal) | CPT/HCPCS: 52310; 99213 ==